=== PATIENT | male | born 1945 | race Caucasian/White ===

== ENCOUNTER → 2023-11-09 08:55 | Outpatient (REF) | payer MEDICARE, OTHER, SELFPAY ==
[2023-11-09] MEDS: NSS 250 IV (10:05)
[2023-11-09] MEDS: DOBUTREX 16 ML IV (12:07)
[2023-11-09] MEDS: DOBUTREX 16 MG IV (12:07)
== END ==
LOC: RCS 08:55
PROVIDERS: ATTENDING PHYSICIAN Internal Medicine Cardiovascular Disease
DX: I25.10 Atherosclerotic heart disease of native coronary artery without angina pectoris (principal); R06.00 Dyspnea, unspecified; Z01.818 Encounter for other preprocedural examination
CPT/HCPCS: 93017; 93350

== ENCOUNTER → 2023-11-15 10:49 | Outpatient (REF) | payer MEDICARE, OTHER, SELFPAY ==
[2023-11-15 11:08] LABS: % Basophils 0.2 % (0-2); % Eosinophils 1.3 % (0-6); % Immature Granulocytes 0.2 % (0-0.5); % Lymphocytes 12.9 % (20.5-51.1); % Monocytes 5.5 % (1.7-9.3); % Neutrophils 79.9 % (42.2-75.2); Absolute Eosinophils 0.1 10^3/uL (0-0.7); Absolute Lymphocytes 1.2 10^3/uL (1.2-3.4); Absolute Monocytes 0.5 10^3/uL (0.1-0.6); Absolute Neutrophils 7.2 10^3/uL (1.4-6.5); Hematocrit 46.2 % (39.0-52.0); Hemoglobin 14.9 g/dL (13.0-18.0); Mean Corp Hgb Conc. 32.3 g/dL (33.0-37.0); Mean Corpuscular Hgb 30.4 pg (27.0-31.0); Mean Corpuscular Volume 94.3 fL (80.0-94.0); Mean Platelet Volume 9.6 fL (7.4-10.4); Nucleated Red Blood Cells % 0 % (-); Platelet Count 177 10^3/uL (130-400); Red Cell Dist. Width 13.7 % (11.5-14.5); White Blood Cell Count 9.1 10^3/uL (4.8-10.8)
[2023-11-15 11:39] LABS: ALT (SGPT) 23 U/L (0-50); AST (SGOT) 39 U/L (17-59); Albumin 3.7 g/dl (3.5-5.0); Alkaline Phosphatase 74 U/L (38-126); Blood Urea Nitrogen 16 mg/dl (9-20); Calcium 9.5 mg/dl (8.4-10.2); Carbon Dioxide 28 mmol/L (22-30); Chloride 104 mmol/L (98-107); Glucose 102 mg/dl (70-99); Potassium 4.6 mmol/L (3.5-5.1); Sodium 140 mmol/L (135-145); Total Bilirubin 1.2 mg/dl (0.2-1.3); Total Protein 6.9 g/dl (6.3-8.2); eGFR > 60.00
== END ==
LOC: SDSPAT 10:49
PROVIDERS: ATTENDING PHYSICIAN Internal Medicine Cardiovascular Disease
DX: Z01.818 Encounter for other preprocedural examination (principal); I42.9 Cardiomyopathy, unspecified; I25.10 Atherosclerotic heart disease of native coronary artery without angina pectoris; R06.00 Dyspnea, unspecified
CPT/HCPCS: 36415; 80053; 85025

== ENCOUNTER 2023-11-17 08:50 | Day surgery (SDC) | payer MEDICARE, OTHER, SELFPAY ==
[2023-11-15 10:54] VITALS: BMI 18.0
[2023-11-17] VITALS (11 sets, daily range): BP systolic 92–127; BP diastolic 59–76
[2023-11-17] MEDS: NSS 166 ML IV (09:43)
--- NOTE | 2023-11-17 11:31 | ITS.CL.CATH ---
[facility] - Catheterization
Cardiac Catheterization
Procedure Report:
CARDIAC CATHETERIZATION REPORT
Date of Procedure: 11/17/2023
Referring: Kade Dobbs D.O.
INDICATION: New systolic cardiomyopathy with normal augmentation during dobutamine stress test.
PROCEDURE:
1. Left heart catheterization
2. Coronary angiography.
3. Successful IFR of the proximal LAD.
4. Successful IFR of the proximal RCA.
ACCESS:
6 [place] right radial artery.
CATHETERS:
1. 5 [place] JR4.
2. 5 [place] JL 3.5.
3. 6 [place] EBU 3.5 guiding catheter.
4. 6 [place] JR4 guiding catheter.
HEMODYNAMIC DATA
Weight (kg): 54.9
AO (s/d/x, mmHg): 111/59/78
LV (s/x mmHg): 111/6
LEFT VENTRICULOGRAPHY: Not performed.
CORONARY ANGIOGRAPHY
Dominance: Right.
Left Main: Normal size, bifurcating vessel. There is no coronary artery disease.
LAD: Normal size vessel giving rise to several small diagonals. The proximal LAD is moderately diseased with dense calcification and several 40% lesions. There is an additional 30% lesion in the mid vessel.
Ramus: Congenitally absent.
Circumflex: Normal size, nondominant vessel giving rise to 3 obtuse marginals. A patent stent is visible in the mid circumflex between OM1 and OM 2. OM1 is a small, 1.5 mm vessel with a 50% lesion in its midsection. There are luminal
irregularities and OM's 2 and 3.
RCA: Large size, dominant vessel with a substantial posterolateral arcade. There is a 50% lesion in the proximal vessel. A patent stent is present in the mid vessel with 10-20% in-stent restenosis.
INTERVENTION(S)
1. Successful IFR of the densely calcified, tandem 40% proximal and mid LAD lesions, demonstrating nonocclusive disease (IFR = 0.97).
2. Successful IFR of the 50% proximal RCA/10-20% mid RCA ISR lesions, demonstrating nonocclusive disease (IFR = 1.0).
Narrative:
The decision was made to perform physiologic testing. The diagnostic catheter was removed over a wire and exchanged for a(n) 6 [place] EBU 3.5 guiding catheter. The guiding catheter was advanced into the ascending aorta and seated in the left main
coronary artery. Additional heparin was given to obtain an ACT greater than 250 seconds. An iFR wire was zeroed outside of the body, then inserted into the guiding sheath. The wire was advanced and the transducer was normalized just outside of the
guiding catheter tip. The wire was advanced into the second diagonal, beyond the mid LAD lesion. Three iFR measurements were taken. The lesion was determined to be nonocclusive (0.97).
We then turned our attention to the proximal RCA. The 6 [place] EBU 3.5 guiding catheter was removed over a wire and exchanged for a(n) 6 [place] JR4 guiding catheter. The guiding catheter was advanced into the ascending aorta and seated in the
right coronary artery. An iFR wire was inserted into the guiding sheath. The wire was advanced and the transducer was normalized just outside of the guiding catheter tip. The wire was advanced into the distal RCA, beyond the proximal RCA lesion,
the in-stent restenosis and the mild mid/distal RCA lesion. Three iFR measurements were taken. The lesion was determined to be nonocclusive (1.0).
The wire was pulled back and the catheter was disengaged from the artery. The catheter was removed over a J-wire.
Closure Device: Vascular band
Radiation (mGy): 332.99
DAP (cm2.Gy): 21.4980
Fluoroscopy time (minutes): 6.9
Sedation time (minutes): 44
CONCLUSIONS
1. Right dominant circulation with nonocclusive 50% proximal RCA +10-20% mid RCA ISR (IFR = 1.0), patent stent in the mid circumflex, a 50% lesion in the small OM1 (1.5 mm vessel) and nonocclusive, densely calcified, tandem 40% lesions in the
proximal/mid LAD (IFR = 0.97).
2. Normal filling pressures (LVEDP = 6 mmHg at 54.9 kg).
RECOMMENDATIONS:
1. Expectant management after cardiac catheterization via right radial approach.
2. Limited weight bearing on the right wrist for one week.
3. Start guideline directed medical therapy as hemodynamics will tolerate to address his nonischemic cardiomyopathy.
4. No role for standing diuretics given normal filling pressures.
5. Decrease aspirin to 81 mg daily.
6. Continue secondary prevention with high-dose, high potency statin.
7. No further cardiovascular testing indicated prior to upcoming surgery.
Copy to: Kade Dobbs D.O., Lidya Watt PA-C
Kade Dobbs DO, FACC, FACP
[2023-11-17 15:31] LABS: ACT-LR - POC > 397 Seconds (116-155)
== END 2023-11-17 15:49 | disposition home or self-care (01) ==
LOC: CATH 08:50
PROVIDERS: ATTENDING PHYSICIAN Internal Medicine Cardiovascular Disease
DX: I25.10 Atherosclerotic heart disease of native coronary artery without angina pectoris (principal); I25.84 Coronary atherosclerosis due to calcified coronary lesion; Z95.5 Presence of coronary angioplasty implant and graft; J43.9 Emphysema, unspecified; I10 Essential (primary) hypertension; Z79.82 Long term (current) use of aspirin; J44.9 Chronic obstructive pulmonary disease, unspecified
CPT/HCPCS: 93458; 93571; 93572; C1769; C1894

== ENCOUNTER 2024-03-04 17:15 | Emergency (ER) | payer MEDICARE, OTHER, SELFPAY ==
[2024-03-04 17:24] VITALS: BP 110/63
--- NOTE | 2024-03-04 18:55 | ED.GENMED ---
History of Present Illness
General
Chief Complaint: Pneumonia Symptoms
Time Seen by Provider: 03/04/24 18:10
History of Present Illness
History of Present Illness:
78-year-old male with history of COPD presenting to the emergency department for persistent cough. Patient reports cough for the past 3 weeks, with difficulty expectorating. He went to urgent care a few days ago, had an x-ray that showed pneumonia
and was started on cyclin. He had a follow-up appointment today and they were concerned that his oxygen saturation was low, advised to come to the hospital. Patient is not on home oxygen. Denies associated chest pain. Denies abdominal pain or GI
symptoms. Denies additional medical complaints.
Past History
Past History
ED Past Medical History: CAD, COPD, Hypercholesterolemia, CA (four) and Hypothyroidism
ED Past Surgical History: Cardiac (Stents)
Social History
Tobacco: Former smoker
Alcohol: None
Personal: Other (Life partner)
Living: with family
Phy Exam
Physical Exam
Physical Exam:
General: Well-appearing, no clinical signs of dehydration, nontoxic and in no acute distress
HEENT: protecting airway
Neck: appears supple
CV: Normal heart rate, regular rhythm, no evidence of cyanosis
Resp: No accessory muscle use, no increased work of breathing, lungs clear to auscultation bilaterally
Abd: Soft and non-distended, no tenderness to palpation, normal bowel sounds
Extremities: No deformities, no swelling, no erythema
Neuro: alert, no focal neurologic deficit
: deferred
Rectal: deferred
Psych: Normal affect
Skin: Intact
Course
Orders/Labs/Results
Orders:
Orders
03/04/24 17:26
CR Chest - 2 Views Urgent
Comment:
Reason For Exam: SOB
03/04/24 18:35
Complete Blood Count/With Diff Urgent
Comprehensive Metabolic Panel Urgent
03/04/24 19:13
COVID-19 Antigen Urgent
Source: Nasal Swab
Vital Signs
Initial and Last Documented VS:
Initial Vital Signs
Temp Pulse Resp BP Pulse Ox
98.4 F 71 20 110/63 94
03/04/24 17:24 03/04/24 17:24 03/04/24 17:24 03/04/24 17:24 03/04/24 17:24
Last Documented Vital Signs
Temp Pulse Resp BP Pulse Ox
98.4 F 65 20 115/65 96
03/04/24 17:24 03/04/24 19:00 03/04/24 19:00 03/04/24 19:00 03/04/24 19:00
MDM/Problems Addressed
MDM/Problems Addressed:
78-year-old male presenting for 3 weeks of cough with concern for pneumonia, diagnosed outpatient. Vital signs are normal.
On exam, patient in no acute respiratory distress, nontoxic, afebrile. EKG obtained on patient's arrival, without evidence of acute pneumonia. At this time, without concern for severe respiratory process. Will do ambulatory pulse ox to ensure no
acute desaturation, currently normal saturations on room air. No wheezing on exam without concern for severe COPD exacerbation. Will swab for COVID.
19:50 - Patient ambulated steadily, no increased work of breathing, no hypoxia. COVID-negative. At this time continue to feel that patient can be managed outpatient. Advised continuing COVID as prescribed. Patient recommending refill on Tessalon
Perles, will provide. Return precautions discussed and patient verbalized understanding
*Critical Care Note
Total Time (30-74mins, 75-104mins- exclusive of procedures): Not Applicable
ED Attending Note
-
Portions of this chart may have been created with voice recognition software.� Occasional wrong word or��sound alike� substitutions may have occurred due to the inherent limitations of voice recognition software.
Discharge Plan
Departure
Prescriptions:
No Action
atorvastatin 40 MG tablet
80 mg PO DAILY
cetirizine 10 MG tablet,chewable
10 mg PO DAILY
levothyroxine 100 MCG tablet
100 mcg PO DAILY@0700 Qty: 0 0RF
ascorbic acid (vitamin C) [Vitamin C] 1,000 MG tablet
1,000 mg PO DAILY
magnesium gluconate 500 MG tablet
500 mg PO DAILY
lisinopril 10 MG tablet
5 mg PO HS
fluticasone propion-salmeterol [Wixela Inhub] 1 EACH blister with device
1 ea IH BID
albuterol sulfate [Ventolin HFA] 90 MCG/PUFF HFA aerosol inhaler
1 puff inhalation DAILY
Spiriva Respimat 1 PUFF mist
2 puff inhalation DAILY
metoprolol succinate 50 mg Capsule,Sprinkle,Er 24hr
50 mg PO DAILY
aspirin [aspirin] 81 mg tablet,chewable
81 mg PO DAILY Qty: 1 0RF
Interventions
Interventions:
*Risk Screen - Suicide Last Done: 03/04/24 17:20
*General Assessment Last Done: 03/04/24 17:20
*Neglect/Abuse Screening Last Done: 03/04/24 18:00
ED- Fall Risk Assessment Last Done: 03/04/24 18:00
*ED COVID-19 Vaccine History Last Done: 03/04/24 17:20
ED- Pulmonary Assessment Last Done: 03/04/24 18:00
Discharge Date and Time
Print Language: MONGOLIAN
[2024-03-04 19:00] VITALS: BP 115/65
[2024-03-04 19:46] LABS: COVID-19 Antigen Negative (Negative)
[2024-03-04 19:55] VITALS: BP 122/62
== END 2024-03-04 20:10 | disposition home or self-care (01) ==
LOC: EMR 17:15
PROVIDERS: EMERGENCY PHYSICIAN Student in an Organized Health Care Education/Training Program; FAMILY PHYSICIAN Physician Assistant
DX: R05.9 Cough, unspecified (principal); J44.9 Chronic obstructive pulmonary disease, unspecified; E03.9 Hypothyroidism, unspecified; E78.00 Pure hypercholesterolemia, unspecified; I25.10 Atherosclerotic heart disease of native coronary artery without angina pectoris; I25.2 Old myocardial infarction; Z95.5 Presence of coronary angioplasty implant and graft; Z87.891 Personal history of nicotine dependence
CPT/HCPCS: 99283; 71046; 87811

== ENCOUNTER → 2024-06-13 08:57 | Outpatient (REF) | payer MEDICARE, OTHER, SELFPAY ==
--- NOTE | 2024-06-13 10:06 | CARDSERVLU ---
Echocardiogram with [facility] completed after protocol screening completed. Allergies verified.
Patent IV site: ___new start 1st attempt 22P RFA__
IV site flushed with 0.9% NaCl pre and post administration.
Diluted bolus method utilized to enhance visualization of ventricular mcgregor.
Total volume given: _3.0___ mL
site dcd at completion of test, no issues.
Patient tolerated all procedures well without complications.
[2024-06-13 11:15] LABS: % Basophils 0.6 % (0-2); % Immature Granulocytes 0.3 % (0-0.5); % Lymphocytes 11.4 % (20.5-51.1); % Monocytes 9.7 % (1.7-9.3); Absolute Basophils 0.1 10^3/uL (0-0.2); Absolute Eosinophils 0.1 10^3/uL (0-0.7); Absolute Monocytes 0.9 10^3/uL (0.1-0.6); Absolute Neutrophils 6.8 10^3/uL (1.4-6.5); Hematocrit 48.7 % (39.0-52.0); Hemoglobin 16.2 g/dL (13.0-18.0); Mean Corp Hgb Conc. 33.3 g/dL (33.0-37.0); Mean Corpuscular Hgb 31.2 pg (27.0-31.0); Mean Corpuscular Volume 93.7 fL (80.0-94.0); Mean Platelet Volume 9.8 fL (7.4-10.4); Nucleated Red Blood Cells % 0 % (-); Platelet Count 195 10^3/uL (130-400); Red Cell Dist. Width 13.9 % (11.5-14.5); White Blood Cell Count 8.9 10^3/uL (4.8-10.8)
[2024-06-13 11:56] LABS: ALT (SGPT) 27 U/L (0-50); AST (SGOT) 33 U/L (17-59); Albumin 4.1 g/dl (3.5-5.0); Alkaline Phosphatase 66 U/L (38-126); Blood Urea Nitrogen 20 mg/dl (9-20); Calcium 9.4 mg/dl (8.4-10.2); Carbon Dioxide 28 mmol/L (22-30); Chloride 102 mmol/L (98-107); Glucose 88 mg/dl (70-99); HDL Cholesterol 50 mg/dl; LDL Cholesterol, Calculated 76 mg/dl; Potassium 4.6 mmol/L (3.5-5.1); Sodium 139 mmol/L (135-145); Total Bilirubin 0.6 mg/dl (0.2-1.3); Total Cholesterol 142 mg/dl (50-199); Total Protein 7.2 g/dl (6.3-8.2); Triglyceride 84 mg/dl (10-149); Very Low Density Lipoprotein 16 mg/dl (0-30); eGFR > 60.00
[2024-06-13 12:19] LABS: TSH 1.51 uIU/ml (0.47-4.68)
== END ==
LOC: RCS 08:57
PROVIDERS: ATTENDING PHYSICIAN Internal Medicine Cardiovascular Disease; FAMILY PHYSICIAN Physician Assistant
DX: I42.8 Other cardiomyopathies (principal); I25.10 Atherosclerotic heart disease of native coronary artery without angina pectoris; Z76.89 Persons encountering health services in other specified circumstances; Z95.5 Presence of coronary angioplasty implant and graft; I10 Essential (primary) hypertension; R06.00 Dyspnea, unspecified; Z01.818 Encounter for other preprocedural examination; N52.9 Male erectile dysfunction, unspecified; R63.4 Abnormal weight loss
CPT/HCPCS: 36415; 80053; 80061; 84443; 85025; 93306; Q9950

== ENCOUNTER 2024-06-13 13:15 | Outpatient (RCR) | payer MEDICARE, OTHER, SELFPAY | END 2024-06-13 23:59 | disposition home or self-care (01) | LOC: PURB 13:15 | PROVIDERS: ATTENDING PHYSICIAN Internal Medicine Pulmonary Disease | DX: J44.9 Chronic obstructive pulmonary disease, unspecified (principal) | CPT/HCPCS: 94625; G0237 ==

== ENCOUNTER 2024-07-13 13:15 | Outpatient (RCR) | payer MEDICARE, OTHER, SELFPAY | END 2024-07-14 11:32 | disposition home or self-care (01) | LOC: PURB 13:15 | PROVIDERS: ATTENDING PHYSICIAN Internal Medicine Pulmonary Disease | DX: J44.9 Chronic obstructive pulmonary disease, unspecified (principal) | CPT/HCPCS: 94625 ==

== ENCOUNTER 2024-08-10 13:15 | Outpatient (RCR) | payer MEDICARE, OTHER, SELFPAY | END 2024-08-11 10:18 | disposition home or self-care (01) | LOC: PURB 13:15 | PROVIDERS: ATTENDING PHYSICIAN Internal Medicine Pulmonary Disease | DX: J44.9 Chronic obstructive pulmonary disease, unspecified (principal) | CPT/HCPCS: 94625 ==

== ENCOUNTER 2024-08-31 13:15 | Outpatient (RCR) | payer MEDICARE, OTHER, SELFPAY | END 2024-09-11 09:22 | disposition home or self-care (01) | LOC: PURB 13:15 | PROVIDERS: ATTENDING PHYSICIAN Internal Medicine Pulmonary Disease | DX: J44.9 Chronic obstructive pulmonary disease, unspecified (principal) | CPT/HCPCS: 94625 ==

== ENCOUNTER 2024-09-12 13:15 | Outpatient (RCR) | payer MEDICARE, OTHER, SELFPAY | END 2024-09-20 10:10 | disposition home or self-care (01) | LOC: PURB 13:15 | PROVIDERS: ATTENDING PHYSICIAN Internal Medicine Pulmonary Disease | DX: J44.9 Chronic obstructive pulmonary disease, unspecified (principal) | CPT/HCPCS: 94625 ==

== ENCOUNTER → 2024-09-20 12:17 | Outpatient (REF) | payer MEDICARE, OTHER, SELFPAY ==
[2024-09-20 14:03] LABS: Blood Urea Nitrogen 22 mg/dl (9-20); Calcium 9.6 mg/dl (8.4-10.2); Carbon Dioxide 26 mmol/L (22-30); Chloride 105 mmol/L (98-107); Glucose 89 mg/dl (70-99); Potassium 4.6 mmol/L (3.5-5.1); Sodium 141 mmol/L (135-145); eGFR > 60.00
== END ==
LOC: SDSPAT 12:17
PROVIDERS: ATTENDING PHYSICIAN Specialist; FAMILY PHYSICIAN Physician Assistant
DX: M70.42 Prepatellar bursitis, left knee (principal)
CPT/HCPCS: 36415; 80048; 93005

== ENCOUNTER 2024-09-25 08:09 | Day surgery (SDC) | payer MEDICARE, OTHER, SELFPAY ==
[2024-09-20 13:50] VITALS: BMI 18.4
--- NOTE | 2024-09-22 07:54 | PTCARENOTE ---
Abn ECG, Dr. Farmer notified, no new interventions required.
[2024-09-25] VITALS (9 sets, daily range): BP systolic 93–125; BP diastolic 60–76; BMI 18.4
[2024-09-25] MEDS: NORMOSOL-R/PLASMALYTE-A 1000 IV (10:58)
[2024-09-25] MEDS: TYLENOL 1000 MG PO (10:58)
[2024-09-25] MEDS: CELEBREX 200 MG PO (10:58)
== END 2024-09-25 16:35 | disposition home or self-care (01) ==
LOC: SDS 08:09
PROVIDERS: ATTENDING PHYSICIAN Specialist; FAMILY PHYSICIAN Physician Assistant
DX: M70.42 Prepatellar bursitis, left knee (principal); M17.12 Unilateral primary osteoarthritis, left knee; M11.262 Other chondrocalcinosis, left knee
CPT/HCPCS: 27340; 88304